=== PATIENT | male | born 1980 | race Caucasian/White ===

== ENCOUNTER → 2017-07-22 | Outpatient (CLI) | payer BC ==
--- NOTE | 2017-07-22 13:15 | RADIOLOGY REPORT (SQ) ---
EXAM DESCRIPTION: CLAVICLE LEFT COMPLETED DATE/TIME: 07/22/2017 11:33 am REASON FOR STUDY: PAIN IN LEFT CLAVICLE M89.8X1 OTHER SPECIFIED DISORDERS OF BONE, SHOULDER COMPARISON: None. NUMBER OF VIEWS: Two views. TECHNIQUE: Frontal and angled images were acquired of the left clavicle. LIMITATIONS: None. FINDINGS: MINERALIZATION: Normal. BONES: No acute fracture or dislocation. No worrisome bone lesions. SOFT TISSUES: There is widening of the acromioclavicular joint with elevation the distal clavicle. OTHER: No other significant finding. IMPRESSION: Cannot exclude AC separation. Is there history of surgery involving the distal clavicle ? TECHNICAL DOCUMENTATION: JOB ID: [id number] [employer]- All Rights Reserved
== END ==
LOC: RAD 11:16
PROVIDERS: ATTEND Physician Assistant
DX: M89.8X1 Other specified disorders of bone, shoulder (principal)

== ENCOUNTER → 2017-07-29 | Outpatient (CLI) | payer BC ==
--- NOTE | 2017-07-29 09:00 | RADIOLOGY REPORT (SQ) ---
EXAM DESCRIPTION: MRI LT LOWER JOINT WITHOUT COMPLETED DATE/TIME: 07/29/2017 8:40 am REASON FOR STUDY: PAIN IN LEFT KNEE (M25.562) M25.562 PAIN IN LEFT KNEE COMPARISON: 2016 radiographs. TECHNIQUE: Leftknee images acquired and stored on PACS. Multiplanar images include fat sensitive se quences as T1, water sensitive sequences as FST2 or STIR, cartilage sensitive sequences as FSPD, and gradient echo sequences. LIMITATIONS: None. FINDINGS: JOINT AND BURSAE: Small to moderate joint effusion with probable synovitis and debris in t he joint. BONE CORTEX AND MARROW: No alteration of signal to suggest marrow replacement. No worrisome bone lesi ons. No occult fracture. ACL: Scant fibers but relatively deficient overall. Suspect chronic tear. PCL: Intact. MCL: Intact. LCL: Intact. MEDIAL MENISCUS: Small radial tear at the junction of the posterior horn and body. LATERAL MENISCUS: Extensive deficiency throughout the posterior root and posterior horn consistent wi th tear. Possible associated displaced fragments. MEDIAL COMPARTMENT: No focal chondral defects or reactive bone changes. LATERAL COMPARTMENT: Generally deficient articular surface cartilage, full thickness loss in the post erior half of the femoral condyle and posterior tibial plateau. Mild flattening of the femoral subch ondral plate with associated sclerosis. No large cysts or erosions or bulky osteophytes, however. PATELLA: No chondromalacia. No subchondral cysts. Medial and lateral retinacula intact. EXTENSOR MECHANISM: Intact. Quadriceps and patella tendons normal. SOFT TISSUES: Adjacent muscles and subcutaneous tissues normal. Normal flow void in popliteal artery and vein. OTHER: No other significant finding. IMPRESSION: 1. Extensive lateral meniscus tear. 2. Medial meniscus tear. 3. Extensive lateral comp artment hyaline cartilage loss. 4. Deficient ACL. 5. Intact PCL and collateral ligaments. TECHNICAL DOCUMENTATION: JOB ID: [id number] [employer]- All Rights Reserved
== END ==
LOC: RAD 07:23
PROVIDERS: ATTEND Physician Assistant
DX: M25.562 Pain in left knee (principal)

== ENCOUNTER 2018-05-30 10:33 | Emergency (ER) | payer BC ==
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
--- NOTE | 2018-05-30 11:29 | RADIOLOGY REPORT (SQ) ---
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 NUMBER OF VIEWS: Three views right knee including AP, lateral and tangential patellofemoral. LIMITATIONS: None. FINDINGS: Chronic superolateral bipartite patella. Mild degenerative spurring in the lateral compar tment and patellofemoral. Joint spaces otherwise look relatively preserved. OTHER: Prepatellar soft tissue swelling may reflect bursitis. No effusion. IMPRESSION: 1. Prepatellar soft tissue swelling. 2. No acute osseous abnormality. Chronic changes include bipartite patella and mild degenerative spurring. TECHNICAL DOCUMENTATION: JOB ID: [id number] Reading location - IP/workstation name: [email or web address]
[2018-05-30 11:31] LABS: ABSOLUTE BASOPHILS # (AUTO) 0.1 10^3/uL (0.0-0.2); ABSOLUTE EOSINOPHILS # (AUTO) 0.2 10^3/uL (0.0-0.6); ABSOLUTE LYMPHOCYTES (AUTO) 2.3 10^3/uL (0.5-4.7); ABSOLUTE MONOCYTES (AUTO) 0.7 10^3/uL (0.1-1.4); ABSOLUTE NEUT (AUTO) 7.6 10^3/uL (1.7-8.2); BASOPHILS % (AUTO) 0.5 % (0-2); EOSINOPHILS % (AUTO) 1.5 % (0-6); HEMATOCRIT 40.8 % (37.9-51.0); HEMOGLOBIN 14.1 g/dL (13.5-17.0); LYMPHOCYTES % (AUTO) 21.2 % (13-45); MEAN CORPUSCULAR HEMOGLOBIN 30.6 pg (27.0-33.4); MEAN CORPUSCULAR HGB CONC 34.5 g/dL (32.0-36.0); MEAN CORPUSCULAR VOLUME 89 fl (80-97); MONOCYTES % (AUTO) 6.9 % (3-13); PLATELET COUNT 274 10^3/uL (150-450); RED BLOOD COUNT 4.59 10^6/uL (4.35-5.55); RED CELL DISTRIBUTION WIDTH 12.9 % (11.5-14.0); SEGMENTED NEUTROPHILS % (AUTO) 69.9 % (42-78); TOTAL CELLS COUNTED % (AUTO) 100 %; WHITE BLOOD COUNT 10.9 10^3/uL (4.0-10.5)
[2018-05-30 12:36] VITALS: BP 110/65
== END 2018-05-30 12:38 | disposition home or self-care (01) ==
LOC: ER 10:33
DX: L03.115 Cellulitis of right lower limb (principal); M70.41 Prepatellar bursitis, right knee; M76.9 Unspecified enthesopathy, lower limb, excluding foot; F17.200 Nicotine dependence, unspecified, uncomplicated; F12.10 Cannabis abuse, uncomplicated; Z88.0 Allergy status to penicillin
CPT/HCPCS: 36415; 84550; 85025; 99283